=== PATIENT | male | born 1950 | race Caucasian/White ===

== ENCOUNTER → 2017-11-16 | Outpatient (CLI) | payer MEDICARE, OTHER ==
[~2017-11-16] MED LIST: CHOL10002 PO; FELO5CR PO; FISH1000 PO; GARLIC; MULVITMINF PO; OMEP20ER PO; ONDA4 PO
== END | disposition home or self-care (01) ==
LOC: LAB SHORT 10:09 → PLD 10:09
DX: D03.21 Melanoma in situ of right ear and external auricular canal (principal)
CPT/HCPCS: 88305

== ENCOUNTER → 2017-11-25 | Outpatient (CLI) | payer MEDICARE, OTHER | END | disposition home or self-care (01) | LOC: LAB SHORT 10:11 → PLD 10:11 | DX: D03.21 Melanoma in situ of right ear and external auricular canal (principal) | CPT/HCPCS: 88305 ==

== ENCOUNTER → 2018-08-22 | Outpatient (CLI) | payer MEDICARE, OTHER | END | disposition home or self-care (01) | LOC: PLD 10:07 → LAB SHORT 10:07 | DX: D48.5 Neoplasm of uncertain behavior of skin (principal) | CPT/HCPCS: 88305 ==

== ENCOUNTER → 2023-04-21 | Outpatient (CLI) | payer MEDICARE, OTHER ==
[~2023-04-21] MED LIST changes: +BAYER CHEWABLE81 MG PO; +IRBE150 PO; +METO25ER PO
== END ==
LOC: PLD 12:25 → LAB SHORT 12:25
DX: C44.311 Basal cell carcinoma of skin of nose (principal)
CPT/HCPCS: 88305